=== PATIENT | male | born 1940 | race Two or more races ===

== ENCOUNTER 2019-11-09 08:02 | Inpatient (IN) | payer MEDICARE, OTHER ==
[~2019-11-09] VITALS: Ht 165.1 cm; Wt 83.0 kg
[~2019-11-09 08:02] MED LIST: ATEN25TA PO
--- NOTE | 2019-11-09 08:10 | NUR ---
PT IV LINE ESTABLISHED BLOOD DRAWN AND SENT TO LAB.
--- NOTE | 2019-11-09 08:12 | NUR ---
SEEN AND EXAMINED BY .
--- NOTE | 2019-11-09 08:19 | NUR ---
DRYWALL TAPER AT BEDSIDE FOR XRAY.
--- NOTE | 2019-11-09 08:21 | NUR ---
PT TO CT VIA [facility].
[2019-11-09 08:52] LABS: BASOPHILS % (AUTO) 0.4 % (0.0-2.0); EOSINOPHILS % (AUTO) 0.8 % (0.0-6.0); HEMATOCRIT 44 % (39-51); HEMOGLOBIN 14.7 g/dL (13.5-17.5); LYMPHOCYTES % (AUTO) 16.7 % (20.0-44.0); MEAN CORPUSCULAR HGB CONC 34 g/dl (31.0-36.0); MEAN CORPUSCULAR VOLUME 96 fL (80-96); MONOCYTES # (AUTO) 0.6 /CMM (0.1-1.30); MONOCYTES % (AUTO) 9.6 % (2.0-12.0); NEUTROPHILS # (AUTO) 4.3 /CMM (1.8-8.9); NEUTROPHILS % (AUTO) 72.5 % (43.0-81.0); PLATELET COUNT (AUTO) 187 /CMM (150-450); RED BLOOD CELL COUNT(AUTO) 4.55 MIL/uL (4.5-6.0)
--- NOTE | 2019-11-09 08:53 | NUR ---
PT SITTING UP, ASLEEP BUT EASILY AWAKEN BY VERBAL STIMULI. PT FOLLOWING COMMANDS, NO ARM/LEG DRIFTING, NO FACIAL DROOP, TONGUE MIDLINE. DENIES CP, SOB, N/V AT THIS TIME. PT ON TELE, SR. WILL CONT TO MONITOR.
[2019-11-09 09:00] LABS: ALANINE AMINOTRANSFERASE 14 U/L (12-78); ALKALINE PHOSPHATASE 60 U/L (46-116); ASPARTATE AMINOTRANSFERASE 10 U/L (15-37); BILIRUBIN,DIRECT 0.2 mg/dL (0.0-0.2); BILIRUBIN,TOTAL 0.7 mg/dL (0.2-1.0); CARBON DIOXIDE 28 mmol/L (21-32); CHLORIDE 103 mmol/L (98-107); CREATININE 1.1 mg/dL (0.6-1.3); GLUCOSE 102 mg/dL (74-106); POTASSIUM 3.5 mmol/L (3.5-5.1); SODIUM SERUM 140 mmol/L (136-145); TOTAL PROTEIN, SERUM 7.3 g/dL (6.4-8.2); UREA NITROGEN, BLOOD 17 mg/dL (7-18)
[2019-11-09] MEDS ORDERED: LOSA1TAB39 PO (09:25)
[2019-11-09] MEDS ORDERED: ERGO500014 PO (09:25)
[2019-11-09] MEDS ORDERED: SENN-175 PO (09:25)
[2019-11-09] MEDS ORDERED: ASCO100031 PO (09:25)
[2019-11-09] MEDS ORDERED: BUSP15TA3 PO (09:26)
[2019-11-09] MEDS ORDERED: ESOM40CA52 PO (09:26)
[2019-11-09] MEDS ORDERED: CALC-17 PO (09:26)
[2019-11-09] MEDS ORDERED: MECL-182 PO (09:26)
[2019-11-09] MEDS ORDERED: LINA72CA PO (09:26)
[2019-11-09] MEDS ORDERED: RIVA10TA PO (09:26)
[2019-11-09] MEDS ORDERED: METF-440 PO (09:26)
[2019-11-09] MEDS ORDERED: ATEN50TA PO (09:26)
[2019-11-09] MEDS ORDERED: FLUT1DIS3 INH (09:26)
[2019-11-09] MEDS ORDERED: CARB1TAB19 PO (09:26)
[2019-11-09] MEDS ORDERED: OXYB-58 PO (09:26)
[2019-11-09] MEDS ORDERED: DRON400T2 PO (09:26)
[2019-11-09] MEDS ORDERED: ESCI10TA PO (09:26)
--- NOTE | 2019-11-09 09:36 | NUR ---
PT EATING BREAKFAST, PT CLAIRE WELL. OK'D BY DR. MARI.
--- NOTE | 2019-11-09 10:22 | NUR ---
urine collected and sent to lab
--- NOTE | 2019-11-09 10:29 | NUR ---
PANEL ON-CALL PAGED
[2019-11-09 10:31] LABS: APPEARANCE,URINE Clear (CLEAR); BILIRUBIN,URINE SMALL (NEGATIVE); BLOOD, URINE Negative Ery/uL (NEGATIVE); COLOR,URINE Dark (YELLOW); KETONES,URINE Negative (NEGATIVE); LEUKOCYTE ESTERASE ,URINE Negative (NEGATIVE); NITRITE, URINE Negative (NEGATIVE); PH,URINE 5.5 (5.0-8.0); PROTEIN,URINE Trace mg/dl (NEGATIVE); UGLUCOSE Negative (NEGATIVE); UROBILINOGEN,URINE 0.2 EU/dL (0.2)
[2019-11-09 10:44] LABS: BACTERIA,URINE Rare /HPF (None Seen); SQUAMOUS EPITHELIAL CELL,UR Few /HPF (None Seen); WBC,URINE 0-1 /HPF (0-3)
--- NOTE | 2019-11-09 11:09 | NUR ---
covid 19 swab collected and sent to lab
[2019-11-09] MEDS ORDERED: DEXTROSE 50%-WATER 50 ML DISP.SYRIN IV PRN (12:30)
[2019-11-09] MEDS ORDERED: ACETAMINOPHEN 325 MG TABLET PO PRN (12:30)
[2019-11-09] MEDS ORDERED: ERGOCALCIFEROL (VITAMIN D 2) 50,000 UNIT CAPSULE PO SCH (12:30)
[2019-11-09] MEDS ORDERED: HYDROCODONE/APAP 5/325MG TABLET PO PRN (12:30)
[2019-11-09] MEDS ORDERED: MAGNESIUM HYDROXIDE 30 ML UDC PO PRN (12:30)
[2019-11-09] MEDS ORDERED: ONDANSETRON HCL/PF 4 MG/2 ML VIAL IVP PRN (12:30)
[2019-11-09] MEDS ORDERED: Z GUARD REMEDY 2 OZ OINT TP PRN (12:30)
[2019-11-09] MEDS ORDERED: MECLIZINE HCL 12.5 MG TABLET PO PRN (12:30)
[2019-11-09] MEDS ORDERED: INSULIN REGULAR, HUMAN 100 UNIT/ML 3 ML VIAL SQ PRN (12:30)
[2019-11-09] MEDS ORDERED: MAG HYDROX/AL HYDROX/SIMETH 30 ML UDC PO PRN (12:30)
--- NOTE | 2019-11-09 12:52 | NUR ---
room [id number]
--- NOTE | 2019-11-09 13:12 | NUR ---
report given to Amie TAYLOR for abbie
--- NOTE | 2019-11-09 13:42 | NUR ---
wheeled patient via gurney accompanied by RN and emt in no distress. RN at bedside to assume care.
[2019-11-09 15:26] VITALS: BP 143/84
[2019-11-09 16:48] LABS: MAGNESIUM 2.4 mg/dL (1.8-2.4); PHOSPHORUS 4.2 mg/dL (2.5-4.9)
--- NOTE | 2019-11-09 16:54 | NUR ---
RN NOTES: RECEIVED PT FROM ER, AWAKE A/O X3, PT ON ROOM AIR TOLERATING WELL, NO SIGNS OF RESPIRATORY DISTRESS, SOB, DIFFICULTY BREATHING OR PAIN. TELE MONITOR, PTS IV SITE INTACT FLUSHED WELL, ALL SAFETY AND COMFORT MEASURES MAINTAINED CALL LIGHT WITHIN REACH WILL CONTINUE TO MONITOR.
[2019-11-09 16:59] LABS: THYROID STIMULATING HORMONE 1.999 uIU/mL (0.358-3.74)
[2019-11-09 17:20] VITALS: BP 143/84
[2019-11-09] MEDS: busPIRone 5 MG TABLET PO SCH (17:26)
[2019-11-09] MEDS: RIVAROXABAN 10 MG TABLET PO SCH (17:28)
[2019-11-09] MEDS: METFORMIN 500 MG TABLET PO SCH (17:29)
[2019-11-09] MEDS: CARBIDOPA/LEVODOPA 10/100 MG 1 UDTAB PO SCH (17:42)
[2019-11-09] MEDS: BLOOD SUGAR DIAGNOSTIC 1 EACH STRIP IN SCH ×2 (17:42→21:34)
--- NOTE | 2019-11-09 18:08 | NUR ---
RN CLOSING NOTES: PT IN BED AWAKE NO ACUTE CHANGES SINCE ADMISSION, VITALS WNL, SAFETY MEASURES MAINTAINED, CALL LIGHT WITHIN REACH WILL ENDORSE TO PM NURSE.
--- NOTE | 2019-11-09 19:20 | NUR ---
MACHINE MOLDER SQUEEZE OPEN NOTES PATIENT IS LAYING IN BED. ON RA, NO SOB/ ACUTE RESPIRATORY DISTRESS NOTED. APPEARS COMFORTABLE/ NO COMPLAINTS OF PAIN AT THE MOMENT. BED IS IN LOWEST LOCKED POSITION WITH SIDE RAILS UP X3, SEMI FOWLERS. CALL LIGHT IS WITHIN REACH. WILL CONTINUE TO MONITOR.
[2019-11-09 20:00] VITALS: BP 120/69
[2019-11-09] MEDS: SENNOSIDES 8.6 MG TABLET PO SCH (21:34)
[2019-11-09] MEDS ORDERED: Medication Not On Formulary EA (Linaclotide (Linzess) 72 MCG) PO SCH (22:00)
[2019-11-10 04:00] VITALS: BP 128/70
--- NOTE | 2019-11-10 06:20 | NUR ---
MS RN CLOSE NOTES PATIENT IS LAYING IN BED. A/O X3. ON RA, NO SOB/ ACUTE RESPIRATORY DISTRESS NOTED. IV IN R AC#18G IS PATENT AND INTACT. APPEARS COMFORTABLE/ NO COMPLAINTS OF PAIN AT THE MOMENT. BED IS IN LOWEST LOCKED POSITION WITH SIDE RAILS UP X3, SEMI FOWLERS. CALL LIGHT IS WITHIN REACH. WILL ENDORSE TO AM NURSE.
[2019-11-10 06:59] LABS: BASOPHILS % (AUTO) 0.5 % (0.0-2.0); HEMATOCRIT 45 % (39-51); HEMOGLOBIN 15.1 g/dL (13.5-17.5); LYMPHOCYTES # (AUTO) 1.4 /CMM (0.8-4.8); LYMPHOCYTES % (AUTO) 25.8 % (20.0-44.0); MEAN CORPUSCULAR HGB CONC 33 g/dl (31.0-36.0); MEAN CORPUSCULAR VOLUME 96 fL (80-96); MONOCYTES # (AUTO) 0.6 /CMM (0.1-1.30); MONOCYTES % (AUTO) 11.7 % (2.0-12.0); NEUTROPHILS # (AUTO) 3.3 /CMM (1.8-8.9); PLATELET COUNT (AUTO) 171 /CMM (150-450); RED BLOOD CELL COUNT(AUTO) 4.69 MIL/uL (4.5-6.0); WHITE BLOOD COUNT (AUTO) 5.4 K/uL (4.3-11.0)
--- NOTE | 2019-11-10 07:30 | NUR ---
RECEIVED PATIENT IN BED. NO ACUTE DISTRESS NOTED. ALERT & ORIENTED X3. PATIENT ON ROOM AIR, BREATHING EVEN AND UNLABORED, SATURATING WELL. PATIENT RIGHT ANTECUBITAL IV ACCESS INTACT, PATENT, FLUSHED WELL. PATIENT SAFETY MEASURES MAINTAINED. CALL LIGHT WITHIN REACH. PATIENT REMINDED TO CALL FOR HELP REGARDING THE BATHROOM (BEDSIDE COMMODE) AND TOLD NOT TO GET UP (FALL RISK). BED ALARM ON, BED LOWERED. WILL CONTINUE TO MONITOR CLOSELY.
[2019-11-10 07:36] LABS: CALCIUM, SERUM 8.9 mg/dL (8.5-10.1); MAGNESIUM 2.6 mg/dL (1.8-2.4); PHOSPHORUS 3.8 mg/dL (2.5-4.9); POTASSIUM 3.9 mmol/L (3.5-5.1)
[2019-11-10 08:00] VITALS: BP 128/70
[2019-11-10] MEDS: ESCITALOPRAM OXALATE (10 MG) 10 MG TABLET PO SCH (08:24)
[2019-11-10] MEDS: OXYBUTYNIN CHLORIDE ER 5 MG TAB PO SCH (08:24)
[2019-11-10] MEDS: CALCIUM CARB 250MG /VITAMIN D 1 UDTAB PO SCH (08:24)
[2019-11-10] MEDS: METFORMIN 500 MG TABLET PO SCH ×2 (08:24→16:23)
[2019-11-10] MEDS: ASCORBIC ACID 500 MG TABLET PO SCH ×2 (08:24→16:22)
[2019-11-10] MEDS: PANTOPRAZOLE 40 MG TABLET.DR PO SCH (08:24)
[2019-11-10] MEDS: busPIRone 5 MG TABLET PO SCH ×2 (08:24→16:22)
[2019-11-10] MEDS: FLUTICASONE/VILANTEROL 1 EACH BLST.W.DEV IH SCH (08:25)
[2019-11-10] MEDS: CARBIDOPA/LEVODOPA 10/100 MG 1 UDTAB PO SCH ×2 (08:25→16:23)
[2019-11-10] MEDS: ATENOLOL 50 MG TABLET PO SCH (08:25)
[2019-11-10] MEDS: BLOOD SUGAR DIAGNOSTIC 1 EACH STRIP IN SCH ×4 (08:25→22:20)
[2019-11-10] MEDS ORDERED: LOSARTAN/HCTZ 50-12.5MG/ 1 EA TABLET PO SCH (09:00)
[2019-11-10 11:30] LABS: BASOPHILS % (AUTO) 0.4 % (0.0-2.0); EOSINOPHILS % (AUTO) 1.3 % (0.0-6.0); HEMATOCRIT 43 % (39-51); HEMOGLOBIN 14.7 g/dL (13.5-17.5); LYMPHOCYTES # (AUTO) 1.1 /CMM (0.8-4.8); LYMPHOCYTES % (AUTO) 21.7 % (20.0-44.0); MEAN CORPUSCULAR HGB CONC 34 g/dl (31.0-36.0); MEAN CORPUSCULAR VOLUME 95 fL (80-96); MONOCYTES # (AUTO) 0.5 /CMM (0.1-1.30); MONOCYTES % (AUTO) 8.8 % (2.0-12.0); NEUTROPHILS # (AUTO) 3.6 /CMM (1.8-8.9); NEUTROPHILS % (AUTO) 67.8 % (43.0-81.0); PLATELET COUNT (AUTO) 186 /CMM (150-450); RED BLOOD CELL COUNT(AUTO) 4.57 MIL/uL (4.5-6.0); WHITE BLOOD COUNT (AUTO) 5.2 K/uL (4.3-11.0)
[2019-11-10 11:40] LABS: THYROID STIMULATING HORMONE 3.196 uIU/mL (0.358-3.74)
[2019-11-10 11:42] LABS: ALBUMIN 3.3 g/dL (3.4-5.0); BILIRUBIN,DIRECT 0.1 mg/dL (0.0-0.2); BILIRUBIN,TOTAL 0.6 mg/dL (0.2-1.0); TOTAL PROTEIN, SERUM 6.6 g/dL (6.4-8.2)
[2019-11-10 16:00] VITALS: BP 148/79
[2019-11-10] MEDS: RIVAROXABAN 10 MG TABLET PO SCH (16:23)
[2019-11-10] MEDS: IV NS 0.9% 1,000 ML IV PRN (16:33)
--- NOTE | 2019-11-10 18:29 | NUR ---
PATIENT IN BED. NO ACUTE DISTRESS NOTED. ALERT & ORIENTED X2-3. PATIENT ON ROOM AIR, BREATHING EVEN AND UNLABORED, SATURATING WELL. PATIENT RIGHT ANTECUBITAL IV ACCESS INTACT, PATENT, FLUSHED WELL. PATIENT SAFETY MEASURES MAINTAINED. CALL LIGHT WITHIN REACH. PATIENT REMINDED TO CALL FOR HELP REGARDING THE BATHROOM (BEDSIDE COMMODE) AND TOLD NOT TO GET UP (FALL RISK). BED ALARM ON, BED LOWERED. WILL ENDORSE PLAN OF CARE TO ONCOMING SHIFT FOR CONTINUITY OF CARE
--- NOTE | 2019-11-10 19:53 | NUR ---
MS RN OPENING NOTES RECEIVED PATIENT IN BED, AWAKE, CONSCIOUS, COOPERATIVE, A/O X3, BREATHING AT ROOM AIR, UNLABORED BREATHING, NO SIGNS OF RESPIRATORY DISTRESS, RAC #18G NS @ 125ML/HR, SIDE RAILS UP X2, NO COMPLAINTS OF PAIN AT THIS TIME, WILL CONTINUE TO MONITOR.
[2019-11-10 21:00] VITALS: BP 163/87
[2019-11-10] MEDS: SENNOSIDES 8.6 MG TABLET PO SCH (22:18)
--- NOTE | 2019-11-10 22:25 | NUR ---
BLOOD SUGAR 93MG/DL.
[2019-11-11] VITALS (8 sets, daily range): BP systolic 113–138; BP diastolic 69–84
[2019-11-11] MEDS: IV NS 0.9% 1,000 ML IV PRN (02:30)
[2019-11-11] MEDS: BLOOD SUGAR DIAGNOSTIC 1 EACH STRIP IN SCH ×4 (06:15→22:24)
[2019-11-11 06:38] LABS: BASOPHILS % (AUTO) 0.5 % (0.0-2.0); EOSINOPHILS % (AUTO) 1.4 % (0.0-6.0); HEMATOCRIT 45 % (39-51); HEMOGLOBIN 15.2 g/dL (13.5-17.5); LYMPHOCYTES % (AUTO) 18.5 % (20.0-44.0); MEAN CORPUSCULAR HGB CONC 34 g/dl (31.0-36.0); MEAN CORPUSCULAR VOLUME 94 fL (80-96); MONOCYTES # (AUTO) 0.5 /CMM (0.1-1.30); MONOCYTES % (AUTO) 8.8 % (2.0-12.0); NEUTROPHILS # (AUTO) 3.9 /CMM (1.8-8.9); NEUTROPHILS % (AUTO) 70.8 % (43.0-81.0); PLATELET COUNT (AUTO) 174 /CMM (150-450); RED BLOOD CELL COUNT(AUTO) 4.75 MIL/uL (4.5-6.0); WHITE BLOOD COUNT (AUTO) 5.5 K/uL (4.3-11.0)
--- NOTE | 2019-11-11 06:58 | NUR ---
MS RN CLOSING NOTES EBNDORSED PATIENT IN BED, AWAKE, A/O X3, BREATHING AT ROOM AIR, UNLABORED BREATHING, NO SIGNS OF RESPIRATORY DISTRESS, RAC #18G NS @ 125ML/HR, SIDE RAILS UP X2, DUE MEDS GIVEN, ASSISTED PATIENT WHEN GOING OR USING BEDSIDE COMMODE, SIDE RAILS UP X 2 FOR SAFETY.
--- NOTE | 2019-11-11 07:35 | NUR ---
RN opening note: Received patient in bed. Awake, alert and oriented x2. Speaks Divehi and basic Com[place]an. Able to make needs known. On room air being tolerated well. No SOB and not in respiratory distress, saturation noted @ 96%. No pain noted nor reported by patient. Iv site clean, dry, patent and intact. IV infusion of Ns @ 125mls/hr being tolerated well. Ambulatory with assistance. Bedside commode available. Call light in reach. Bed locked, low and at semi-gillis's position. Side rails up x3. Bed alarm on. Safety ensured and observed. Will continue to monitor.
--- NOTE | 2019-11-11 07:45 | NUR ---
rn note: orthostatic BP taken from patient supine: 138/81 sittin/73 standing: unable to take due to patient not being able to stand up for an extended amount of time. No dizziness reported by patient.
[2019-11-11 09:24] LABS: POTASSIUM 3.8 mmol/L (3.5-5.1)
[2019-11-11 09:25] LABS: CALCIUM, SERUM 9.1 mg/dL (8.5-10.1); MAGNESIUM 2.1 mg/dL (1.8-2.4)
[2019-11-11] MEDS: ATENOLOL 50 MG TABLET PO SCH (09:40)
[2019-11-11] MEDS: METFORMIN 500 MG TABLET PO SCH ×2 (09:40→17:35)
[2019-11-11] MEDS: PANTOPRAZOLE 40 MG TABLET.DR PO SCH (09:40)
[2019-11-11] MEDS: CARBIDOPA/LEVODOPA 10/100 MG 1 UDTAB PO SCH (09:40)
[2019-11-11] MEDS: OXYBUTYNIN CHLORIDE ER 5 MG TAB PO SCH (09:40)
[2019-11-11] MEDS: CALCIUM CARB 250MG /VITAMIN D 1 UDTAB PO SCH (09:40)
[2019-11-11] MEDS: ESCITALOPRAM OXALATE (10 MG) 10 MG TABLET PO SCH (09:40)
[2019-11-11] MEDS: ASCORBIC ACID 500 MG TABLET PO SCH ×2 (09:40→17:35)
[2019-11-11] MEDS: busPIRone 5 MG TABLET PO SCH ×2 (09:41→17:35)
[2019-11-11] MEDS: FLUTICASONE/VILANTEROL 1 EACH BLST.W.DEV IH SCH (09:41)
[2019-11-11] MEDS: RIVAROXABAN 10 MG TABLET PO SCH (17:49)
[2019-11-11] MEDS: CARBIDOPA/LEVODOPA 25/100 MG 1 UDTAB PO SCH (18:04)
--- NOTE | 2019-11-11 19:30 | NUR ---
TORI/RN OPENING NOTES RECEIVED PATIENT RESTING IN BED. PATIENT IS ALERT AND ORIENTED X 2-3. PATIENT SHOWS NO SIGNS OF SOB OR RESPIRATORY DISTRESS NOTED. PATIENT IS ON ROOM AIR TOLERATING WELL. PATIENT HAS IV ACCESS ON LAC #22G RUNNING NS at 125ML/HR. PATIENT IS IN NO SIGNS OF DISTRESS. SAFETY MEASURES ARE IN PLACE, BED IS LOCKED AND PLACED IN THE LOW POSITION, SIDE RAILS UP X 3. CALL LIGHT IS WITHIN REACH. WILL CONTINUE TO MONITOR DURING SHIFT.
--- NOTE | 2019-11-11 19:34 | NUR ---
RN closing note: Patient remains in bed. Awake, alert and oriented x2. Speaks German and basic Iranian. Able to make needs known. On room air being tolerated well. No SOB and not in respiratory distress, saturation noted @ 96%. No pain noted nor reported by patient. Iv site clean, dry, patent and intact. IV infusion of Ns @ 125mls/hr being tolerated well. Ambulatory with assistance. Bedside commode available. Call light in reach. Bed locked, low and at semi-gillis's position. Side rails up x3. Bed alarm on. Due medications given. Treatment given as ordered. Endorsed to oncoming shift for DANIS.
[2019-11-11] MEDS: SENNOSIDES 8.6 MG TABLET PO SCH (22:17)
[2019-11-12 05:00] VITALS: BP 113/72
--- NOTE | 2019-11-12 06:40 | NUR ---
MS/RN CLOSING NOTES PATIENT SLEEPING IN BED EASY TO AROUSE. PATIENT IS ALERT AND ORIENTED X 3. PATIENT SHOWS NO SIGNS OF SOB OR RESPIRATORY DISTRESS NOTED. PATIENT IS ON ROOM AIR TOLERATING WELL. PATIENT HAS IV ACCESS ON LAC #22G RUNNING NS at 125ML/HR. PATIENT IS IN NO SIGNS OF DISTRESS. PATIENT IS ABLE TO STAND WITH ASSIST. ALL PATIENTS NEEDS HAVE BEEN MET DURING SHIFT. SAFETY MEASURES ARE IN PLACE, BED IS LOCKED AND PLACED IN THE LOW POSITION, SIDE RAILS UP X 3. CALL LIGHT IS WITHIN REACH. WILL ENDORSE CARE TO DAY SHIFT.
[2019-11-12 06:55] LABS: BASOPHILS % (AUTO) 0.5 % (0.0-2.0); EOSINOPHILS % (AUTO) 1.6 % (0.0-6.0); HEMATOCRIT 45 % (39-51); HEMOGLOBIN 15.2 g/dL (13.5-17.5); LYMPHOCYTES # (AUTO) 1.7 /CMM (0.8-4.8); LYMPHOCYTES % (AUTO) 27.2 % (20.0-44.0); MEAN CORPUSCULAR HGB CONC 34 g/dl (31.0-36.0); MEAN CORPUSCULAR VOLUME 95 fL (80-96); MONOCYTES # (AUTO) 0.6 /CMM (0.1-1.30); MONOCYTES % (AUTO) 9.5 % (2.0-12.0); NEUTROPHILS # (AUTO) 3.8 /CMM (1.8-8.9); NEUTROPHILS % (AUTO) 61.2 % (43.0-81.0); PLATELET COUNT (AUTO) 186 /CMM (150-450); RED BLOOD CELL COUNT(AUTO) 4.72 MIL/uL (4.5-6.0); WHITE BLOOD COUNT (AUTO) 6.2 K/uL (4.3-11.0)
[2019-11-12 07:14] LABS: CREATININE 1.1 mg/dL (0.6-1.3); PHOSPHORUS 3.9 mg/dL (2.5-4.9); POTASSIUM 3.9 mmol/L (3.5-5.1)
[2019-11-12] MEDS: BLOOD SUGAR DIAGNOSTIC 1 EACH STRIP IN SCH ×2 (07:52→12:37)
[2019-11-12 08:00] VITALS: BP 131/82
--- NOTE | 2019-11-12 08:30 | NUR ---
RN OPENING NOTES RECEIVED PATIENT RESTING IN BED. PATIENT IS ALERT AND ORIENTED X 2-3 BURUNDIAN/ANGUILLAN SPEAKING. PATIENT SHOWS NO SIGNS OF SOB OR RESPIRATORY DISTRESS NOTED. PATIENT IS ON ROOM AIR TOLERATING WELL. PATIENT HAS IV ACCESS ON LAC #22G RUNNING NS at 125ML/HR. SAFETY MEASURES ARE IMPLEMENTED BY HOSPITAL POLICY, BED IS IN LOCKED POSITION AND IN THE LOWEST POSITION, SIDE RAILS UP X 3. CALL LIGHT IS WITHIN REACH. WILL CONTINUE TO MONITOR FOR DANIS
[2019-11-12] MEDS: PANTOPRAZOLE 40 MG TABLET.DR PO SCH (08:53)
[2019-11-12] MEDS: ASCORBIC ACID 500 MG TABLET PO SCH ×2 (08:53→16:14)
[2019-11-12] MEDS: METFORMIN 500 MG TABLET PO SCH ×2 (08:54→16:14)
[2019-11-12] MEDS: OXYBUTYNIN CHLORIDE ER 5 MG TAB PO SCH (08:54)
[2019-11-12] MEDS: busPIRone 5 MG TABLET PO SCH ×2 (08:54→16:14)
[2019-11-12] MEDS: CALCIUM CARB 250MG /VITAMIN D 1 UDTAB PO SCH (08:55)
[2019-11-12] MEDS: ESCITALOPRAM OXALATE (10 MG) 10 MG TABLET PO SCH (08:55)
[2019-11-12] MEDS: CARBIDOPA/LEVODOPA 25/100 MG 1 UDTAB PO SCH ×3 (08:55→16:14)
[2019-11-12] MEDS: ATENOLOL 50 MG TABLET PO SCH (08:56)
[2019-11-12] MEDS: IV NS 0.9% 1,000 ML IV PRN (09:36)
[2019-11-12] MEDS: FLUTICASONE/VILANTEROL 1 EACH BLST.W.DEV IH SCH (09:49)
--- NOTE | 2019-11-12 11:04 | NUR ---
RN NOTES PT NEXT TO THE BED. PATIENT FINALLY HAD BOWEL MOVEMENT
[2019-11-12 12:00] VITALS: BP 125/76
--- NOTE | 2019-11-12 12:30 | NUR ---
RN NOTES PT IS WALKING AROUND PT IS HELPING
[2019-11-12 13:00] VITALS: BP 125/76
[2019-11-12] MEDS: RIVAROXABAN 10 MG TABLET PO SCH (16:15)
--- NOTE | 2019-11-12 17:00 | NUR ---
RN NOTES PT IS STILL A LITTLE WEAK BUT VS WNL. CHANGED PT CLOTHES, REMOVED IV, TOOK PICTURES AND WHEELED DOWN TO THE SON GIOVANY. DOCTOR MET THE SON AT THE [facility]. DC PATIENT SAFETY MEASUREMENTS WERE IMPLEMENTED. PT HAD NON SLID SOCKS ON.
[2019-11-13] MEDS ORDERED: CARBIDOPA/LEVODOPA 25/100 MG 1 UDTAB PO SCH (09:00)
== END 2019-11-12 17:00 | disposition home health service (06) | DRG 73 ==
LOC: ER 08:09 → UNDOADMIN 11:41 → TELE2 11:41 → TELE1 12:55 → MEDSG1 23:18
PROVIDERS: ADMIT Nurse Practitioner Acute Care; ATTEND Nurse Practitioner Acute Care
DX: G90.8 Other disorders of autonomic nervous system (principal); G93.41 Metabolic encephalopathy; D68.69 Other thrombophilia; E11.9 Type 2 diabetes mellitus without complications; G20 Parkinson's disease; F17.210 Nicotine dependence, cigarettes, uncomplicated; I48.91 Unspecified atrial fibrillation; G30.9 Alzheimer's disease, unspecified; F02.80 Dementia in other diseases classified elsewhere, unspecified severity, without behavioral disturbance, psychotic disturbance, mood disturbance, and anxiety; R29.6 Repeated falls; E66.9 Obesity, unspecified; Z68.30 Body mass index [BMI] 30.0-30.9, adult; I10 Essential (primary) hypertension; K59.00 Constipation, unspecified; Z79.84 Long term (current) use of oral hypoglycemic drugs
CPT/HCPCS: 36415; 70450-TC; 71045-TC; 80048-TC; 80061-TC; 80076-TC; 81000-TC; 82962-TC; 83605-TC; 83735-TC; 84100-TC; 84439-TC; 84443-TC; 84484-TC; 85025-TC; 85730-TC; 87040-TC; 87081-TC; 87086-TC; 93307-TC; 93880-TC; 93970-TC; 97116-TC; 97530-TC; C9803-CS; G0378; J1815; J7030; J8597